=== PATIENT | male | born 1985 | race Caucasian/White ===

== ENCOUNTER 2019-11-26 10:44 | Emergency (ER) | payer SELFPAY ==
[2019-11-26 10:46] VITALS: BP 125/70; PULSE 76; RESP 17; TEMP 37.2; O2SAT 100; BMI 27.3
--- NOTE | 2019-11-26 11:01 | RAD_ITS ---
STUDY: X-RAY CHEST REASON FOR EXAM: Male, 34 years old. EPISODE OF SHORTNESS OF BREATH TODAY TECHNIQUE: Single AP portable view of the chest. COMPARISON: None. FINDINGS: Cardiac silhouette unremarkable. Pulmonary vascularity unremarkable. Aorta unremarkable. No focal patchy airspace opacities. No pleural effusions. Upper abdomen unremarkable. Osseous structures intact. No pneumothorax. RAD/Chest 1 View (Portable) IMPRESSION: No acute cardiopulmonary findings Electronically Signed: Stanton Kamara DO at 11:29 EST Tel , Service support ,
--- NOTE | 2019-11-26 11:01 | EKG12_ITS ---
Test Reason : SOB Blood Pressure : / mmHG Vent. Rate : 065 BPM Atrial Rate : 065 BPM P-R Int : 164 ms QRS Dur : 082 ms QT Int : 378 ms P-R-T Axes : 059 052 038 degrees QTc Int : 393 ms Normal sinus rhythm with sinus arrhythmia Normal ECG Confirmed by ROGER MILES, DEBBIE ([id number]), copy editor CEE CALLAWAY ([id number]) on 11/30/2019 12:28:00 PM Referred By: KERI Confirmed By:DEBBIE DURAN MD
--- NOTE | 2019-11-26 11:07 | ED.DCSUM_ITS ---
- ER Visit Summary Date of Service: 11/26/19 Chief Complaint: Shortness of breath History of Present Illness: The patient is a 34 M presenting with shortness of breath. He states this started 2 days ago. He had an episode where he was very short of breath and had tingling around his mouth. At that time he went to [place]. It was felt that he was having a panic attack. His symptoms resolved. He states he had similar episode again today. He denies chest pain. He states he has been under a lot of stress financially due to the holidays. He admits to anxiety, denies suicidal thoughts or plan. He has had a nonproductive cough. He denies fever. Denies PE/DVT risk factors. He has a remote history of asthma. Denies other complaints. Physical Examination: Vitals are stable. Temperature 99. Pulse ox 100% on room air. Alert no acute distress. HEENT exam is unremarkable. Neck is supple. Lungs are clear and equal bilaterally. Heart is regular rate and rhythm. Abdomen is soft nontender nondistended. Extremities are unremarkable. Skin is warm and dry. No focal neurologic deficit. Remainder of exam is unremarkable. Emergency Department Course and Treatment: EKG is sinus rhythm rate of 65 with no acute ischemic changes. Chest x-ray shows no acute process. CBC, chemistries unremarkable. Troponin is negative. D-dimer negative. On reevaluation, patient is resting comfortably. He is given a prescription for Vistaril to take as needed. He is advised to follow-up with Dr. Fernandes supervisor of operations for no doctor and the counseling center. Advised return to ED for worsening complaints. Disposition: Discharge home Impression: Anxiety This note was generated with [employer] dictation software. It may contain incorrect words, spelling, and punctuation that were not noted in review of the chart prior to signing ED Disposition - Plan for ED Patient: Instructions: Anxiety Reaction Prescriptions: hydrOXYzine pamoate capsule [Vistaril] 25 mg PO TID PRN PRN #30 cap PRN Reason: Anxiety Prescription Printed Referrals: Counseling,Center [GROUP OF PHYSICIANS] - Tre Fernandes MD [NON-STAFF] -
--- NOTE | 2019-11-26 11:07 | NURSING ---
NO OLD EKGS
[2019-11-26 11:21] LABS: Absolute Lymphocyte Count 2.54 X10^3/uL (0.83-4.51); Absolute Neutrophil Count 6.9 X10^3/uL (2.0-7.7); Basophil# 0.05 X10^3/uL; Basophil% 0.5 % (0-1); Eosinophil# 0.25 X10^3/uL; Eosinophils% 2.4 % (0-5); Hematocrit 41.6 % (40-54); Hemoglobin 14.4 g/dL (13.0-16.5); Lymphocyte # 2.54 X10^3/ul (4.0); Mean Corp Hgb Conc 34.6 g/dL (32-36); Mean Corpuscular Hgb 31.8 pg (27.0-32.0); Mean Corpuscular Volume 91.8 fL (80-94); Mean Platelet Vol. 8.7 fl (6.2-12.0); Monocyte# 0.83 X10^3/uL; Monocyte% 7.9 % (0-10); NRBC Flagged by Analyzer 0 % (0-5); Neutrophil # 6.87 X10^3/uL (2.7-7.7); Neutrophil % 64.9 % (47-70); Platelet Count 391 K/mm3 (150-450); RBC Distribution Width CV 11.8 % (11.6-14.6); RBC Distribution Width SD 39.8 fl (35.1-43.9); Red Blood Count 4.53 M/mm3 (4.6-6.2); White Blood Count 10.6 K/mm3 (4.4-11.0)
[2019-11-26 11:38] LABS: Anion Gap 4 (5-15); BUN 14 mg/dL (7-18); BUN/Creat Ratio 16.4 RATIO (10-20); Calcium,Total 9.6 mg/dL (8.5-10.1); Chloride 109 mmol/L (98-107); Creatinine, Serum 0.85 mg/dL (0.70-1.30); EST Glomerular Filtration Rate 108 mL/min (>60); Est Glom Filt Rate - Afr Amer 131 mL/min (>60); Estimated Creatinine Clearance 116.24 ml/min; Glucose 101 mg/dL (74-106); Potassium 3.8 mmol/L (3.5-5.1); Sodium Level 141 mmol/L (136-145)
--- NOTE | 2019-11-26 12:57 | ED.DEP ---
ED Disposition - Plan for ED Patient: Instructions: Anxiety Reaction Prescriptions: hydrOXYzine pamoate capsule [Vistaril] 25 mg PO TID PRN PRN #30 capsule PRN Reason: Anxiety Referrals: Counseling,Center [GROUP OF PHYSICIANS] - Tre Fernandes MD [NON-STAFF] -
[2019-11-26 13:14] VITALS: BP 125/85; PULSE 71; RESP 16; O2SAT 99
== END 2019-11-26 13:15 | disposition home or self-care (01) ==
LOC: ED 11:31
PROVIDERS: Emergency Provider Emergency Medicine
DX: F41.9 Anxiety disorder, unspecified (principal)
CPT/HCPCS: 71045; 80048; 84484; 85025; 85379; 93005; 99284; A4216

== ENCOUNTER 2020-11-17 21:06 | Emergency (ER) | payer SELFPAY ==
[2020-11-17 21:07] VITALS: BP 137/78; PULSE 87; RESP 15; TEMP 37; O2SAT 98; BMI 27.6
[2020-11-17 21:08] VITALS: O2SAT 98
--- NOTE | 2020-11-17 21:14 | ED.DCSUM_ITS ---
History of Present Illness Chief Complaint: Asthma Narrative: This patient is a 35-year-old male who presents with chest tightness. He is started to feel tightness in his chest and throat. He states he has a history of asthma but did not have an albuterol inhaler. He called EMS. He was given 2 aerosols in route. He states this did not seem to make a difference. He otherwise denies any recent illness. No fever congestion rhinorrhea. No cough. No pain. No vomiting or diarrhea. No other medical history. Past Medical History - Allergies and Home Meds Allergies/Adverse Reactions: Allergies No Known Allergies Allergy (Verified 11/17/20 21:10) Primary Care Physician: Care Physician,No Primary [Primary Care Provider] - Past Medical History: - - Asthma Smoking Status: Current every day smoker Review of Systems All systems negative except as indicated General: Denies: Fever Eyes: Denies: Visual changes - bilaterally ENT: Denies: Bilateral ear pain Cardiovascular: Reports: - - Chest tightness. Denies: Chest pain Respiratory: Denies: Dyspnea, Cough Gastrointestinal: Denies: Nausea, Vomiting Musculoskeletal: Denies: Myalgias, Arthralgias Skin: Denies: Rash Neurological: Denies: Headache Allergy: Denies: Uticaria Physical Exam Vital Signs/Narrative: Vital Signs Temp Pulse Resp BP Pulse Ox 11/17/20 21:07 98.6 F 87 15 137/78 H 98 Inital Vital Signs reviewed: Yes General: Well nourished, Well developed Head: Normocephalic Eyes: EOMI ENT: Moist mucous membranes Neck: Supple Cardiovascular: Regular rate, Regular rhythm Respiratory: No distress, CTA bilaterally. Negative for: Rales, Rhonchi, Wheezi ng, Diminished, Decreased Air Movement Abdomen: Soft, Nontender Extremities: Nontender Skin: Normal color Neurological: Alert Diagnostic/Tx/Re-eval Impressions Chest X-Ray 11/17/20 21:35 IMPRESSION: Normal x-ray examination of the chest. Electronically Signed: Luke Eduardo MD at 21:54 EST , Service support , 11/17/20 21:35 CXR [Chest PA and Lateral] [RAD] Stat - Medical Decision Making EKG shows normal sinus rhythm at a rate of 80 no acute ischemic changes. 2 view, PA and lateral, chest x-ray obtained. On my review this shows no acute process. X-ray read by radiology as normal. Patient's lungs were clear and aerosols did not help. I do not think this is really related to his asthma. He does have a history of anxiety with prior similar symptoms and has been treated with Vistaril. At this point I do not believe he has any serious or acute life-threatening pathology. He was advised to follow-up as an outpatient. Patient was discharged. ED Disposition - Plan for ED Patient: Disposition: Home or Assisted Living Diagnosis: Dyspnea Instructions: ED Dyspnea Referrals: Care Physician,No Primary [Primary Care Provider] -
--- NOTE | 2020-11-17 21:35 | RAD_ITS ---
STUDY: X-RAY CHEST REASON FOR EXAM: Male, 35 years old. CHEST TIGHTNESS TECHNIQUE: PA and lateral COMPARISON: 11/26/2019. FINDINGS: The lungs are clear and expanded. There is no demonstrated pleural abnormality. Normal size heart. Normal mediastinum and george. Normal visualized pulmonary arteries. Normal visualized aortic arch and descending thoracic aorta. Normal visualized thoracic spine. Normal visualized ribs, clavicles, and shoulders. There is no demonstrated abnormality of the visualized soft tissue structures of the upper abdomen. No significant change since prior exam RAD/Chest PA and Lateral IMPRESSION: Normal x-ray examination of the chest. Electronically Signed: Luke Eduardo MD at 21:54 EST , Service support ,
[2020-11-17 22:18] VITALS: BP 127/68; PULSE 52; RESP 16; O2SAT 98
== END 2020-11-17 22:19 | disposition home or self-care (01) ==
PROVIDERS: Emergency Provider Emergency Medicine
DX: R06.00 Dyspnea, unspecified (principal); R07.89 Other chest pain; F17.200 Nicotine dependence, unspecified, uncomplicated
CPT/HCPCS: 71046; 93005; 99284